=== PATIENT | male | born 1985 | race Caucasian/White ===

== ENCOUNTER 2023-03-19 16:31 | Emergency (ER) | payer OTHER | END 2023-03-19 17:43 | disposition left against medical advice (07) | LOC: ED 16:31 | DX: Z53.21 Procedure and treatment not carried out due to patient leaving prior to being seen by health care provider (principal) | CPT/HCPCS: 99281 ==

== ENCOUNTER 2023-07-24 19:55 | Emergency (ER) | payer OTHER ==
--- NOTE | 2023-07-24 22:08 | ERPHSYRPT ---
- History of Present Illness Time Seen by Provider: 07/24/23 22:00 Source: patient Exam Limitations: no limitations Physician History: This is a 37-year-old right-handed white male patient who injured his left middle finger yesterday at approximately 5 PM (07/23/2023). Patient jammed his left middle finger on a door frame. Occurred: yesterday Method of Injury: other (Jammed it on a door frame) Quality: aching Severity of Pain-Max: mild (To moderate) Severity of Pain-Current: mild (To moderate) Extremities Pain Location: 3rd finger: left (Proximal redness, tenderness and swelling) Associated Symptoms: none Allergies/Adverse Reactions: No Known Drug Allergies Allergy (Verified 07/24/23 21:59) Home Medications: Sertraline HCl 50 mg [Zoloft 50 mg Tablet] 150 mg PO DAILY 07/24/23 [History] Travel Risk - International Travel Have you traveled outside of the country in past 3 weeks: No - Emerging Infectious Disease Are you exhibiting symptoms associated with any current EIDs: No - Review of Systems Constitutional: No Symptoms Eyes: No Symptoms Ears, Nose, & Throat: No Symptoms Respiratory: No Symptoms Cardiac: No Symptoms Abdominal/Gastrointestinal: No Symptoms Genitourinary Symptoms: No Symptoms Musculoskeletal: Injury (Left middle finger) Skin: No Symptoms Neurological: No Symptoms Psychological: No Symptoms Endocrine: No Symptoms Hematologic/Lymphatic: No Symptoms Immunological/Allergic: No Symptoms All Other Systems: Reviewed and Negative - Past Medical History Pertinent Past Medical History: No - Past Surgical History Past Surgical History: No - Nursing Vital Signs Nursing Vital Signs: Initial Vital Signs Temperature 98.3 F 07/24/23 22:00 Pulse Rate 86 07/24/23 22:00 Respiratory Rate 18 07/24/23 22:00 Blood Pressure 140/79 07/24/23 22:00 O2 Sat by Pulse Oximetry 94 L 07/24/23 22:00 Pain Scale Pain Intensity 2 - Physical Exam General Appearance: no apparent distress, alert Eyes, Ears, Nose, Throat Exam: normal ENT inspection, moist mucous membranes Neck Exam: normal inspection, non-tender, supple, full range of motion Cardiovascular/Respiratory Exam: No chest non-tender, No no respiratory distress Abdominal Exam: non-tender Back Exam: normal inspection, normal range of motion, No CVA tenderness, No vertebral tenderness Shoulder Exam: normal inspection, non-tender, no evidence of injury, normal ROM Elbow/Forearm Exam: normal inspection, non-tender, no evidence of injury, normal ROM Wrist Exam: normal inspection, non-tender, no evidence of injury, normal ROM Hand Exam: normal ROM, bone tenderness (Proximal left middle finger), soft tissue tenderness (Proximal left middle finger), swelling (Proximal left middle finger) Neuro/Tendon Exam: normal sensation, normal motor functions, normal tendon functions, responds to pain, no evidence tendon injury Mental Status Exam: alert, oriented x 3, cooperative Skin Exam: normal color, warm, dry SpO2 Interpretation: borderline oxygenation O2 Delivery: Room Air - Course Nursing assessment & vital signs reviewed: Yes Ordered Tests: Active Orders 24 hr Category Date Time Status ACO SDOH Referral ONCE Cons 07/24/23 22:14 Active FINGER(S) Stat Exams 07/24/23 22:01 Taken - Progress Progress: unchanged Progress Note: 07/24/23 22:43 This patient's medical issue is 1 of low complexity. The level of complexity in the workup performed is based on review of the patient's past medical history, review of the patient's medication list, review of patient drug allergy list, history present illness and physical findings on examination. The workup in this patient includes x-ray of the patient's left hand. 07/24/23 23:25 I interpreted the patient's x-ray of his left hand middle finger. There is no evidence of any acute fracture or dislocation. Counseled pt/family regarding: diagnosis, need for follow-up, rad results Medical Desision Making - Diagnostic Testing Diagnostic test were ordered, analyzed, and reviewed by me: Yes Radiological Interpretation: Interpreted by me - Departure Departure Disposition: Home Clinical Impression: Injury of left middle finger Condition: Stable Critical Care Time: No Referrals: HOSPITAL,'S [Primary Care Provider] - Follow up/PCP as directed Additional Instructions: Ice bath left hand 3 times a day for the next 48 hours. Use Tylenol and ibuprofen for pain control.
[2023-07-24 22:14] VITALS: TEMP 98.3
[2023-07-24 23:25] VITALS: O2SAT 97
[2023-07-24 23:40] VITALS: BP 126/77; PULSE 74; RESP 20
[2023-07-24] MEDS ORDERED: PERCOCET TABLET 5/325MG ONE (23:41)
[2023-07-24] MEDS: PERCOCET TABLET 5/325MG PO STA (23:42)
--- NOTE | 2023-07-25 08:43 | XRAY ---
Indication: Pain and swelling following injury. Comparison: None 3 view left 3rd finger obtained. No bony, articular, or soft tissue abnormalities.
== END 2023-07-24 23:54 | disposition home or self-care (01) ==
LOC: ED 19:55
DX: S69.92XA Unspecified injury of left wrist, hand and finger(s), initial encounter (principal); W22.09XA Striking against other stationary object, initial encounter; Z79.899 Other long term (current) drug therapy
CPT/HCPCS: 73140; 99282; A9270-GY

== ENCOUNTER 2023-08-30 00:11 | Emergency (ER) | payer OTHER ==
[2023-08-30 00:24] VITALS: TEMP 98.8
[2023-08-30 00:49] LABS: BASOPHIL % 0.4 % (0.0-0.4); Basophil (Absolute #) 0.03 x10^3/uL (0-0.4); Eosinophil % 2.5 % (0.00-5.0); Hematocrit 46.3 % (42-50); Hemoglobin 16.4 g/dL (12.5-18.0); IMMATURE GRAN # 0.04 x10^3u/L (0.00-0.03); IMMATURE GRAN % 0.5 % (0.00-0.4); Lymphocytes % 19.8 % (24.0-44.0); Mean Corpuscular Hemoglobin 30.8 pg (26-32); Mean Corpuscular Hgb Concent. 35.4 g/dL (32-36); Mean Platelet Volume 10.1 fL (7.5-11.0); Monocyte (Absolute #) 0.63 x10^3/uL (0.0-1.3); Monocytes % 7.8 % (0.0-12.0); Platelet Count 239 x10^3/uL (150-450); Red Blood Count 5.32 x10^6/uL (4.1-5.6); Red Cell Distribution Width 12.2 % (11.5-14.0); White Blood Count 8.1 x10^3/uL (4.0-10.5)
[2023-08-30 00:55] LABS: ALBUMIN 4.2 g/dL (3.5-5.0); ANION GAP 14.6 MEQ/L (5-15); BILIRUBIN,TOTAL 0.4 mg/dL (0.2-1.3); Calcium 8.5 mg/dL (8.4-10.2); Creatinine 1 0.81 mg/dL (0.66-1.25); EST GLOMERULAR FILTRATION RATE 115.7 ML/MIN; Potassium 3.8 mmol/L (3.5-5.1)
[2023-08-30 03:25] VITALS: RESP 15
--- NOTE | 2023-08-30 04:40 | ERPHSYRPT ---
- History of Present Illness Time Seen by Provider: 08/30/23 01:23 Historian: patient Exam Limitations: no limitations Patient Subjective Stated Complaint: chest pain that started around 11pm Triage Nursing Assessment: pt ambulated into ER without diff, pt alert and oriented x4. Pt c/o mid sternal chest pain that started around 11pm and radiates across his chest and to his back. Pt describes pain as sharp, intermittent pain. Lungs clear, heart tones reg, abd soft with active bs x4 quad. Pt did have some diarrhea today. No edema noted. Pt denies any nausea, vomiting or sob. Physician History: 37-year-old male presents to emergency department for evaluation of substernal chest pain. Pain has been intermittent for 2 days. No associated nausea vomiting or diaphoresis. Pain is not associated with exertion. Patient denies a history of the same. No trauma no fever. Symptoms are mild to moderate in intensity. No specific worsening or improving factors. Patient states he is otherwise healthy. He is a smoker. Patient voices no other complaints or concerns at this time. Portions of this note were created with voice recognition technology. There may be grammatical, spelling, punctuation or sound alike errors Timing/Duration: day(s) (2 days ago) Activities at Onset: none Quality: aching Location: substernal Chest Pain Radiation: no radiation Severity of Pain-Max: moderate Severity of Pain-Current: mild Modifying Factors: Improves With: nothing Associated Symptoms: denies symptoms Prior Chest Pain/Cardiac Workup: no prior chest pain Nitro Today/Relief: no nitro taken today Aspirin Treatment Today: no aspirin today Allergies/Adverse Reactions: No Known Drug Allergies Allergy (Verified 08/30/23 00:34) Home Medications: Sertraline HCl 50 mg [Zoloft 50 mg Tablet] 450 mg PO DAILY 07/24/23 [History] Hx Tetanus, Diphtheria Vaccination/Date Given: Yes Hx Influenza Vaccination/Date Given: No Hx Pneumococcal Vaccination/Date Given: No Travel Risk - International Travel Have you traveled outside of the country in past 3 weeks: No - Emerging Infectious Disease Are you exhibiting symptoms associated with any current EIDs: Yes Symptoms: Diarrhea - Review of Systems Constitutional: No Symptoms, No Fever, No Chills Eyes: No Symptoms Ears, Nose, & Throat: No Symptoms Respiratory: No Symptoms, No Cough, No Dyspnea Cardiac: No Symptoms, No Chest Pain, No Edema, No Syncope Abdominal/Gastrointestinal: No Symptoms, No Abdominal Pain, No Nausea, No Vomiting, No Diarrhea Genitourinary Symptoms: No Symptoms, No Dysuria Musculoskeletal: No Symptoms, No Back Pain, No Neck Pain Skin: No Symptoms, No Rash Neurological: No Symptoms, No Dizziness, No Focal Weakness, No Sensory Changes Psychological: No Symptoms Endocrine: No Symptoms Hematologic/Lymphatic: No Symptoms Immunological/Allergic: No Symptoms All Other Systems: Reviewed and Negative - Past Medical History Pertinent Past Medical History: Yes Neurological History: No Pertinent History ENT History: No Pertinent History Cardiac History: High Cholesterol Respiratory History: No Pertinent History Endocrine Medical History: No Pertinent History Musculoskeletal History: No Pertinent History GI Medical History: No Pertinent History History: No Pertinent History Psycho-Social History: Anxiety, Depression, Other Male Reproductive Disorders: No Pertinent History Other Medical History: PTSD - Past Surgical History Past Surgical History: Yes Neuro Surgical History: No Pertinent History Cardiac: No Pertinent History Respiratory: No Pertinent History Gastrointestinal: No Pertinent History Genitourinary: No Pertinent History Musculoskeletal: Other Male Surgical History: No Pertinent History Other Surgical History: right hand and 5th finger surgery x2. left thumb surgery. - Social History Smoking Status: Current every day smoker How long have you smoked: 27 yrs Exposure to second hand smoke: Yes Drug Use: none - Nursing Vital Signs Nursing Vital Signs: Initial Vital Signs Temperature 98.8 F 08/30/23 00:23 Respiratory Rate 20 08/30/23 00:23 Blood Pressure 112/76 08/30/23 00:23 O2 Sat by Pulse Oximetry 96 08/30/23 00:23 Pain Scale Pain Intensity 5 - Physical Exam General Appearance: no apparent distress, alert Eye Exam: PERRL/EOMI, eyes nml inspection Ears, Nose, Throat Exam: normal ENT inspection, moist mucous membranes Neck Exam: normal inspection, non-tender, supple, full range of motion Respiratory Exam: normal breath sounds, lungs clear, No respiratory distress Cardiovascular Exam: regular rate/rhythm, normal heart sounds Gastrointestinal/Abdomen Exam: soft, No tenderness, No mass Back Exam: normal inspection, No CVA tenderness, No vertebral tenderness Extremity Exam: normal inspection, normal range of motion Neurologic Exam: alert, oriented x 3, cooperative, normal mood/affect, sensation nml, No motor deficits Skin Exam: normal color, warm, dry Lymphatic Exam: No adenopathy SpO2 Interpretation: normal SpO2: 93 O2 Delivery: Room Air - Course Nursing assessment & vital signs reviewed: Yes EKG Interpreted by Me: RATE ([id number]), Sinus Rhythm, NORMAL AXIS, NORMAL INTERVALS - Radiology Exams Chest X-ray Interpretation: Teleradiologist Report Ordered Tests: Active Orders 24 hr Category Date Time Status Manufacturing Weaver STAT Care 08/30/23 00:44 Active EKG-ER Only STAT Care 08/30/23 00:44 Active IV Insertion STAT Care 08/30/23 00:44 Active Pulse Oximetry (ED) STAT Care 08/30/23 00:44 Active CHEST 1 VIEW (PORTABLE) Stat Exams 08/30/23 01:30 Taken CBC W DIFF Stat Lab 08/30/23 00:20 Completed CMP Stat Lab 08/30/23 00:20 Completed D-DIMER QUANTITATIVE Stat Lab 08/30/23 00:20 Completed TROPONIN Q4H Lab 08/30/23 00:20 Completed TROPONIN Q4H Lab 08/30/23 03:36 Completed TROPONIN Q4H Lab 08/30/23 08:45 Ordered Lab/Rad Data: Laboratory Result Diagrams 08/30/23 00:20 08/30/23 00:20 Laboratory Results 08/30/23 08/30/23 08/30/23 Range/Units 03:36 00:20 00:20 WBC (4.0-10.5) x10^3/uL RBC (4.1-5.6) x10^6/uL Hgb (12.5-18.0) g/dL Hct (42-50) % MCV (78-100) fL MCH (26-32) pg MCHC (32-36) g/dL RDW (11.5-14.0) % Plt Count (150-450) x10^3/uL MPV (7.5-11.0) fL Gran % (36.0-66.0) % Immature Gran % (Auto) (0.00-0.4) % Nucleat RBC Rel Count (0.00-0.1) % Eos # (Auto) (0-0.5) x10^3/uL Immature Gran # (Auto) (0.00-0.03) x10^3u/L Absolute Lymphs (auto) (1.0-4.6) x10^3/uL Absolute Monos (auto) (0.0-1.3) x10^3/uL Absolute Nucleated RBC (0.00-0.01) x10^3u/L Lymphocytes % (24.0-44.0) % Monocytes % (0.0-12.0) % Eosinophils % (0.00-5.0) % Basophils % (0.0-0.4) % Absolute Granulocytes (1.4-6.9) x10^3/uL Basophils # (0-0.4) x10^3/uL D-Dimer 0.33 (0.0-0.50) mg/L Sodium (135-145) mmol/L Potassium (3.5-5.1) mmol/L Chloride (98-107) mmol/L Carbon Dioxide (22-30) mmol/L Anion Gap (5-15) MEQ/L BUN (9-20) mg/dL Creatinine (0.66-1.25) mg/dL Estimated GFR ML/MIN Glucose (74-106) mg/dL Calcium (8.4-10.2) mg/dL Total Bilirubin (0.2-1.3) mg/dL AST (17-59) U/L ALT (0-50) U/L Alkaline Phosphatase (38-126) U/L Troponin I < 0.012 < 0.012 (0.000-0.033) ng/mL Serum Total Protein (6.3-8.2) g/dL Albumin (3.5-5.0) g/dL 08/30/23 08/30/23 Range/Units 00:20 00:20 WBC 8.1 (4.0-10.5) x10^3/uL RBC 5.32 (4.1-5.6) x10^6/uL Hgb 16.4 (12.5-18.0) g/dL Hct 46.3 (42-50) % MCV 87.0 (78-100) fL MCH 30.8 (26-32) pg MCHC 35.4 (32-36) g/dL RDW 12.2 (11.5-14.0) % Plt Count 239 (150-450) x10^3/uL MPV 10.1 (7.5-11.0) fL Gran % 69.0 H (36.0-66.0) % Immature Gran % (Auto) 0.5 H (0.00-0.4) % Nucleat RBC Rel Count 0.0 (0.00-0.1) % Eos # (Auto) 0.20 (0-0.5) x10^3/uL Immature Gran # (Auto) 0.04 H (0.00-0.03) x10^3u/L Absolute Lymphs (auto) 1.60 (1.0-4.6) x10^3/uL Absolute Monos (auto) 0.63 (0.0-1.3) x10^3/uL Absolute Nucleated RBC 0.00 (0.00-0.01) x10^3u/L Lymphocytes % 19.8 L (24.0-44.0) % Monocytes % 7.8 (0.0-12.0) % Eosinophils % 2.5 (0.00-5.0) % Basophils % 0.4 (0.0-0.4) % Absolute Granulocytes 5.60 (1.4-6.9) x10^3/uL Basophils # 0.03 (0-0.4) x10^3/uL D-Dimer (0.0-0.50) mg/L Sodium 138 (135-145) mmol/L Potassium 3.8 (3.5-5.1) mmol/L Chloride 107 (98-107) mmol/L Carbon Dioxide 20 L (22-30) mmol/L Anion Gap 14.6 (5-15) MEQ/L BUN 14 (9-20) mg/dL Creatinine 0.81 (0.66-1.25) mg/dL Estimated GFR 115.7 ML/MIN Glucose 105 (74-106) mg/dL Calcium 8.5 (8.4-10.2) mg/dL Total Bilirubin 0.40 (0.2-1.3) mg/dL AST 32 (17-59) U/L ALT 29 (0-50) U/L Alkaline Phosphatase 110 (38-126) U/L Troponin I (0.000-0.033) ng/mL Serum Total Protein 7.0 (6.3-8.2) g/dL Albumin 4.2 (3.5-5.0) g/dL - Progress Progress: improved Air Movement: good Progress Note: Patient is a 37-year-old male presents to our emergency department for evaluation of chest pain. Patient's risk factors include smoking and high cholesterol. EKG is normal sinus rhythm. D-dimer negative. Troponin negative x 2. Chest x-ray shows no acute findings. Patient reassessed he is currently asymptomatic. Heart score is a 1. No indication for further workup will discharge home. Patient agrees to follow-up with his primary care doctor within 48 hours for evaluation. Voices no other complaints or concerns at this time. Complexity problem addressed is moderate acute complicated No critical care time Complexity of data reviewed and analyzed is moderate. Test ordered test reviewed results analyzed and correlated clinically with history and physical exam. Risk of complication and or risk of morbidity/mortality is low. Vital stable. Time spent to discharge patient is approximately 20 minutes. Plan of care established for shared decision making. No social determinants of health present impede follow-up. Portions of this note were created with voice recognition technology. There may be grammatical, spelling, punctuation or sound alike errors 08/30/23 04:51 Blood Culture(s) Obtained: No Antibiotics given: No Counseled pt/family regarding: lab results, diagnosis, need for follow-up, rad results - Departure Departure Disposition: Home Clinical Impression: Chest pain Condition: Stable Critical Care Time: No Referrals: [facility]OSP[facility],'S [Primary Care Provider] - Follow up/PCP as directed Additional Instructions: Discharge/Care Plan MAGDALENA THOMAS was seen on 08/30/23 in the Emergency Room. The patient was counseled regarding Diagnosis,Lab results, Imaging studies, need for follow up and when to return to the Emergency Room. Prescriptions given: Discharge Note I have spoken with the patient and/or caregivers. I have explained the patient's condition, diagnosis and treatment plan based on the information available to me at this time. I have answered the patient's and/or caregiver's questions and ad dressed any concerns. The patient and/or caregivers have as good understanding of the patient's diagnosis, condition and treatment plan as can be expected at this point. The vital signs have been stable. The patient's condition is stable and appropriate for discharge from the emergency department. The patient will pursue further outpatient evaluation with the primary care physician or other designated or consulting physician as outlined in the discharge instructions. The patient and/or caregivers are agreeable to this plan of care and follow-up instructions have been explained in detail. The patient and/or caregivers have received these instruction. The patient/and or caregivers are aware that any significant change in condition or worsening of symptoms should prompt an immediate return to this or the closest emergency department or call 911.
[2023-08-30 05:31] VITALS: BP 105/63; PULSE 70; O2SAT 94
--- NOTE | 2023-08-30 08:52 | XRAY ---
Indication: Chest pain. Comparison: None Portable apical lordotic chest slightly underinflated and clear with incidental tiny calcified granulomas. Heart not enlarged. Bony thorax intact.
== END 2023-08-30 05:41 | disposition home or self-care (01) ==
LOC: ED 00:11
DX: R07.9 Chest pain, unspecified (principal); E78.5 Hyperlipidemia, unspecified; Z79.899 Other long term (current) drug therapy; Z72.0 Tobacco use
CPT/HCPCS: 36000; 36415; 71045; 80053; 84484; 85025; 85379; 93005; 93041; 94760; 99284